=== PATIENT | female | born 1945 | race Caucasian/White ===

== ENCOUNTER 2017-02-10 08:32 | Outpatient (CLI) | payer MEDICARE ==
[~2017-02-10] VITALS: Ht 152.4 cm; Wt 77.1 kg
[~2017-02-10 08:32] MED LIST changes: -CARV6.252 PO
[2017-02-10 08:41] VITALS: BP 131/63
[2017-02-10] MEDS ORDERED: CARV6.252 PO (08:48)
== END 2017-02-10 08:57 | disposition home or self-care (01) ==
LOC: PREOP 08:32
PROVIDERS: ATTEND Surgery
DX: Z01.818 Encounter for other preprocedural examination (principal); Z11.2 Encounter for screening for other bacterial diseases; L98.9 Disorder of the skin and subcutaneous tissue, unspecified
CPT/HCPCS: 87081

== ENCOUNTER → 2017-02-10 | Outpatient (CLI) | payer MEDICARE ==
[~2017-02-10] MED LIST: ALPRAZOLAM 0.25 MG; AMLO10TA PO; AMOXICILLIN 500 MG; BENA20TA2 PO; CARV6.252 PO; CHOL10003 PO; DOCU-143 PO; EST30C VG; FURO20TA4 PO; HYDR-3062 PO; HYDR-3812 PO; HYDR1TAB PO; LEVO112T55 PO; LVT.1T PO; MAGN400T6 PO; MEDR2.5T6 PO; METO-272 PO; MULT-1021 PO; OMEP40CA36 PO; PAROXETINE; PREMARIN VAGINAL CRE; TRIA10.8 NSEACH; TYLENOL ARTHRITIS PO; [UNRECOGNIZED DRUG - CODE]; [UNRECOGNIZED DRUG - CODE] PO; [UNRECOGNIZED DRUG - OTHER]; vitamine D3 PO
--- NOTE | 2017-02-11 08:15 | Diagnostic Imaging Report ---
Bilateral screening mammogram The current study was also evaluated with a Computer Aided Detection (CAD) system. Indication: Screening. No current complaints stated on the questionnaire. COMPARISON: 11/25/15. FINDINGS: The breasts are composed of heterogeneously dense parenchyma which may decrease mammographic sensitivity. Bilateral scattered calcifications are seen. Allowing for technique and positional differences, no suspicious change is seen. IMPRESSION: No significant change. ACR BI-RADS Category 2: Benign findings. Result letter will be mailed to the patient. Note: At least 10% of breast cancer is not imaged by mammography. Dictated by: Dictated on workstation # [id number]
== END ==
LOC: RAD 08:52
PROVIDERS: ATTEND Obstetrics & Gynecology
DX: Z12.31 Encounter for screening mammogram for malignant neoplasm of breast (principal)
CPT/HCPCS: 77067

== ENCOUNTER 2017-02-17 06:00 | Day surgery (SDC) | payer MEDICARE ==
[~2017-02-17] VITALS: Ht 152.4 cm; Wt 77.1 kg
[~2017-02-17 06:00] MED LIST changes: +CARV6.252 PO
[2017-02-17 06:25] VITALS: BP 135/66
[2017-02-17] MEDS ORDERED: FAMOTIDINE 20MG/2ML IV (PEPCID) IV ONE (06:30)
[2017-02-17] MEDS ORDERED: LACTATED RINGERS 1,000 ML IV PRN (06:30)
[2017-02-17] MEDS ORDERED: ceFAZolin 1,000 MG (ANCEF) VIAL ONE (06:30)
[2017-02-17] MEDS ORDERED: NS (IVPB) 50 ML ONE (06:31)
[2017-02-17] MEDS ORDERED: ceFAZolin 1 GM/NS 50 ML IVPB IV ONE ×2 (07:00)
[2017-02-17] MEDS ORDERED: BUPIVACAINE 0.5% 30 ML (SENSORCAINE) VIAL ONE (07:18)
[2017-02-17] MEDS ORDERED: LIDOCAINE 1% INJ 20 ML (XYLOCAINE) VIAL ONE (07:18)
[2017-02-17] MEDS ORDERED: MIDAZOLAM 2 MG/2 ML (VERSED) VIAL ONE (08:12)
[2017-02-17] MEDS ORDERED: proPOfol 200 MG/20 ML (DIPRIVAN) VIAL IV ONE (08:12)
--- NOTE | 2017-02-17 08:17 | Progress Note-Pre Operative ---
Pre-Operative Progress Note H&P Reviewed The H&P was reviewed, patient examined and no changes noted. Date H&P Reviewed: Feb 17, 2017 Time H&P Reviewed: 08:16 Pre-Operative Diagnosis: right neck lesion DAXA MUSTAFA DO Feb 17, 2017 8:17 am
[2017-02-17] MEDS ORDERED: HYDR-3812 PO (08:32)
[2017-02-17] MEDS ORDERED: DOCU-143 PO (08:32)
--- NOTE | 2017-02-17 08:34 | Discharge Inst-Simple/Standard ---
Discharge Inst-Standard Discharge Medications New, Converted or Re-Newed RX: RX on Chart Patient Instructions/Follow Up Plan of Care/Instructions/FU: Follow up in 10 days for suture removal Activity as Tolerated: No Discharge Diet: No Restrictions Other Inst to Patient Follow up Appt: Make appointment for 10 days. Instructions: No lifting greater than 10 pounds. No strenuous activity. May shower in 24 hours, no tub bath or soaking. Use incentive spirometer at home as directed. No Smoking Skin/Wound Care: May remove bandages. You need to leave the white strips over incision on they will fall off on their own. Symptoms to Report: Appetite Changes, Extremity Discoloration, Numbness/Tingling, Swelling Increased , Bleeding Excessive, Eyesight Changes, Pain Increased, Urine Color Change, Constipation(Persistent), Fever over 101 degree F, Pain/Pressure in chest, Urinating Difficulty, Cough Up/Vomit Blood, Heart Beat Irreg/Pounding, Pain/ Pressure in jaw, Vaginal Bleeding Increase, Cramps in feet or legs, Lightheadedness, Pain/Pressure in shoulder, Diarrhea(Persistent), Memory Changes Suddenly, Questions/Concerns, Weight gain consecutive days, Dizziness/ Fainting, Nausea/Vomiting, Shortness of Breath, Weight gain over 2 pounds If questions or concerns contact your physician Or seek help at emergency department. WALDEMAR HDZ APRN Feb 17, 2017 08:34
[2017-02-17] MEDS ORDERED: LACTATED RINGERS 1,000 ML IV ONE (08:43)
--- NOTE | 2017-02-17 08:47 | Progress Note-Post Operative ---
Post-Operative Progess Note Surgeon (s)/Reservoir Engineering Advisor (s) Surgeon DAXA MUSTAFA DO Reservoir Engineering Advisor: 0 Pre-Operative Diagnosis right neck lesion Post-Operative Diagnosis same Post-Op Procedure Note Date of Procedure: Feb 17, 2017 Name of Procedure Performed: excision neck lesion 2x1cm Description of the Procedure: see note Findings of the Procedure see note Anesthesia Type mac c local Estimated blood loss (mL): minimal Specimen(s) collected/removed skin lesion neck DAXA MUSTAFA DO Feb 17, 2017 8:47 am
[2017-02-17] MEDS ORDERED: MEPERIDINE (DEMEROL) INJ 50 MG/ML IVP PRN (09:00)
[2017-02-17] MEDS ORDERED: MEPERIDINE (DEMEROL) INJ 50 MG/ML ONE (09:06)
[2017-02-17 09:25] VITALS: BP 136/66
[2017-02-17 09:55] VITALS: BP 137/78
--- NOTE | 2017-02-17 12:45 | OPERATIVE REPORT ---
PROCEDURE PHYSICIAN: DAXA MUSTAFA DATE OF PROCEDURE: 02/17/2017 PREOPERATIVE DIAGNOSIS: Skin lesion, neck. POSTOPERATIVE DIAGNOSIS: Skin lesion, neck. PROCEDURE: Excision of neck lesion 2 x 1 cm SURGEON: Patria. ANESTHESIA: MAC with local, 5 mL 0.5 Marcaine 1% lidocaine 50:50 ratio. ESTIMATED BLOOD LOSS: Minimal. COMPLICATIONS: None. INDICATIONS: The patient is a 71-year-old female with a skin lesion of the right neck which has increase in size and the patient wishes to have it excised. The patient was anxious about performing it in the office and wished to perform it in the OR. She understands the risks and benefits of the procedure and wished to proceed with the procedure. Consent was signed on the chart. PROCEDURE: The patient was taken operating suite. She was prepped and draped in sterile fashion. A surgical pause was performed. Local anesthetic was infiltrated around the lesion. A number 15 blade scalpel was used to make an elliptical incision around the lesion taking skin and subcutaneous tissues, removing the lesion in its entirety. The skin was then closed using a 4-0 Prolene in a simple interrupted fashion. The area was then washed and dried. Sterile bandage was applied. The patient tolerated the procedure well without complication. She was taken recovery room in stable condition. Job ID: [id number] Dictated Date: 02/17/2017 08:54:00 Security Researcher Date: 02/17/2017 12:39:53 / ritesh RAZA
--- OUTSIDE RECORDS SUMMARY | 2017-03-20 20:28 | XMS REPORT | Continuity of Care Document ---
Author Author [facility] Organization [facility] Address Unknown Phone Unavailable Allergies Active Description Code Type Severity Reaction Onset Reported/Identified Relationship to Patient Clinical Status Yes No Known Drug Allergies [id number] Drug Allergy Unknown N/ A 08/03/2007 Medications Problems Date Dx Coded Attending Type Code Diagnosis Diagnosed By 06/16/2013 JERMAINE BRISENO MD Ot 924.01 CONTUSION OF HIP 06/16/2013 JERMAINE BRISENO MD Ot 959.01 HEAD INJURY, NOS 06/16/2013 JERMAINE BRISENO MD Ot E000.8 OTHER EXTERNAL CAUSE STATUS 06/16/2013 JERMAINE BRISENO MD Ot E849.[address] NEC 06/16/2013 JERMAINE BRISENO MD Ot E880.9 FALL ON STAIR/STEP NEC 09/30/2014 MITCH ORR ELEMENTARY EDUCATION TUTOR Ot 793.89 11/20/2014 Ot V76.12 11/20/2014 Ot 610.0 11/20/2014 MITCH ORR ELEMENTARY EDUCATION TUTOR Ot 793.89 11/20/2014 MITCH ORR ELEMENTARY EDUCATION TUTOR Ot V76.12 11/20/2014 MITCH ORR ELEMENTARY EDUCATION TUTOR Ot 793.80 11/20/2014 MITCH ORRP Ot 793.89 12/19/2014 MITCH ORRP Ot 793.80 12/23/2014 FARAZ MONTOYA DO Ot 793.80 01/02/2015 FARAZ MONTOYA DO Ot 793.80 04/29/2015 DAXA MUSTAFA DO Ot 211.3 BENIGN NEOPLASM LG BOWEL 04/29/2015 DAXA MUSTAFA DO Ot 214.3 LIPOMA INTRA-ABDOMINAL 04/29/2015 DAXA MUSTAFA DO Ot 530.81 ESOPHAGEAL REFLUX 04/29/2015 DAXA MUSTAFA DO Ot 553.3 DIAPHRAGMATIC HERNIA 04/29/2015 DAXA MUSTAFA DO Ot 562.10 DIVERTICULOSIS COLON (W/O MENT OF HEMORR 04/29/2015 RAMSEY DODAXA Ot V76.51 SCREEN MAL NEOP-COLON 12/08/2015 Ot V76.12 12/08/2015 Ot 610.0 12/08/2015 QUICK, MITCH Ann ELEMENTARY EDUCATION TUTOR Ot 793.89 12/08/2015 QUICK, MITCH Ann ELEMENTARY EDUCATION TUTOR Ot V76.12 12/08/2015 QUICK, MITCH W ELEMENTARY EDUCATION TUTOR Ot 793.80 12/08/2015 QUICK, MITCH W ELEMENTARY EDUCATION TUTOR Ot 793.89 12/08/2015 MONTOYA DOADOLFOA C Ot 793.80 12/08/2015 [place] DOTOSHIATT D Ot V72.84 12/08/2015 MONTOYA ADOLFO MAZAA C Ot N60.09 12/08/2015 MONTOYA ADOLFO MAZAA C Ot Z12.31 12/08/2015 MUSTAFA DAXA MAZA D Ot K43.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 12/16/2015 ADOLFO MONTOYA DOA C Ot N60.09 12/16/2015 ADOLFO MONTOYA DOA C Ot Z12.31 12/25/2015 [place] DODAXA D Ot K42.9 12/25/2015 MUSTAFA DODAXA D Ot K43.2 12/25/2015 MUSTAFA DODAXA D Ot Z01.810 12/25/2015 [place] DO, DAXA D Ot Z01.812 01/08/2016 MUSTAFA DO, DAXA D Ot K42.9 01/08/2016 [place] DODAXA D Ot K43.2 01/08/2016 [place] DOTOSHIATT D Ot Z01.810 01/08/2016 [place] DO, DAXA D Ot Z01.812 07/26/2016 WILL VINSON DO Ot G47.33 OBSTRUCTIVE SLEEP APNEA (ADULT) (PEDIATR 08/01/2016 WILL VINSON DO Ot G47.31 PRIMARY CENTRAL SLEEP APNEA 08/03/2016 WILL VINSON DO Ot G47.31 PRIMARY CENTRAL SLEEP APNEA 08/18/2016 WILL VINSON DO Ot G47.31 PRIMARY CENTRAL SLEEP APNEA 08/27/2016 WILL VINSON DO Ot G47.31 PRIMARY CENTRAL SLEEP APNEA 10/03/2016 SHERLYN MCADAMS APRN Ot G47.33 OBSTRUCTIVE SLEEP APNEA (ADULT) ( PEDIATR 10/04/2016 SHERLYN MCADAMS APRN Ot G47.33 OBSTRUCTIVE SLEEP APNEA (ADULT) ( PEDIATR 02/10/2017 Ot V76.12 OTH SCREEN MAMMO-MALIGN NEOPLASM OF CRISSY 02/10/2017 Ot 610.0 SOLITARY CYST OF BREAST 02/10/2017 MITCH ORR Ot 793.89 OTH (ABN) FINDINGS ON RADIOLOGICAL EXAMI 02/10/2017 MITCH ORR Ot V76.12 OTH SCREEN MAMMO-MALIGN NEOPLASM OF CRISSY 02/10/2017 MITCH ORR Ot 793.80 UNSPEC ABNORMAL MAMMOGRAM 02/10/2017 MITCH ORR Ot 793.89 OTH (ABN) FINDINGS ON RADIOLOGICAL EXAMI 02/10/2017 FARAZ MONTOYA DO Ot 793.80 UNSPEC ABNORMAL MAMMOGRAM 02/10/2017 DAXA MUSTAFA DO Ot V72.84 EXAM PRE-OPERATIVE NOS 02/10/2017 FARAZ MONTOYA DO Ot N60.09 SOLITARY CYST OF UNSPECIFIED BREAST 02/10/2017 FARAZ MONTOYA DO Ot Z12.31 ENCNTR SCREEN MAMMOGRAM FOR MALIGNANT NE 02/10/2017 DAXA MUSTAFA DO Ot K42.9 UMBILICAL HERNIA WITHOUT OBSTRUCTION OR 02/10/2017 DAXA MUSTAFA DO Ot K43.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 02/10/2017 DAXA MUSTAAF DO Ot Z01.810 ENCOUNTER FOR PREPROCEDURAL CARDIOVASCUL 02/10/2017 DAXA MUSTAFA DO Ot Z01.812 ENCOUNTER FOR PREPROCEDURAL LABORATORY E 02/10/2017 WILL VINSON DO Ot G47.31 PRIMARY CENTRAL SLEEP APNEA 02/10/2017 Ot V76.12 OTH SCREEN MAMMO-MALIGN NEOPLASM OF CRISSY 02/10/2017 Ot 610.0 SOLITARY CYST OF BREAST 02/10/2017 MITCH ORR Ot 793.89 OTH (ABN) FINDINGS ON RADIOLOGICAL EXAMI 02/10/2017 MITCH ORR Ot V76.12 OTH SCREEN MAMMO-MALIGN NEOPLASM OF CRISSY 02/10/2017 MITCH ORR Ot 793.80 UNSPEC ABNORMAL MAMMOGRAM 02/10/2017 MITCH ORR Ot 793.89 OTH (ABN) FINDINGS ON RADIOLOGICAL EXAMI 02/10/2017 MONTOYAMarissa MAZA FARAZ C Ot 793.80 UNSPEC ABNORMAL MAMMOGRAM 02/10/2017 DAXA MUSTAFA DO Ot V72.84 EXAM PRE-OPERATIVE NOS 02/10/2017 MONTOYA FARAZ Ot N60.09 SOLITARY CYST OF UNSPECIFIED BREAST 02/10/2017 MONTOYAFARAZ Ann DO Ot Z12.31 ENCNTR SCREEN MAMMOGRAM FOR MALIGNANT NE 02/10/2017 MUSTAFA DODAXA Ot K42.9 UMBILICAL HERNIA WITHOUT OBSTRUCTION OR 02/10/2017 MUSTAFA DODAXA Ot K43.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 02/10/2017 DAXA MUSTAFA DO Ot Z01.810 ENCOUNTER FOR PREPROCEDURAL CARDIOVASCUL 02/10/2017 DAXA MUSTAFA DO Ot Z01.812 ENCOUNTER FOR PREPROCEDURAL LABORATORY E 02/10/2017 WILL VINSON DO Ot G47.31 PRIMARY CENTRAL SLEEP APNEA 02/10/2017 Ot V76.12 OTH SCREEN MAMMO-MALIGN NEOPLASM OF CRISSY 02/10/2017 Ot 610.0 SOLITARY CYST OF BREAST 02/10/2017 MITCH ORR Ot 793.89 OTH (ABN) FINDINGS ON RADIOLOGICAL EXAMI 02/10/2017 MITCH ORR Ot V76.12 OTH SCREEN MAMMO-MALIGN NEOPLASM OF CRISSY 02/10/2017 MITCH ORR Ot 793.80 UNSPEC ABNORMAL MAMMOGRAM 02/10/2017 MITCH ORR Ot 793.89 OTH (ABN) FINDINGS ON RADIOLOGICAL EXAMI 02/10/2017 MONTOYAFARAZ Ann DO Ot 793.80 UNSPEC ABNORMAL MAMMOGRAM 02/10/2017 DAXA MUSTAFA DO Ot V72.84 EXAM PRE-OPERATIVE NOS 02/10/2017 MONTOYAFARAZ Ann DO Ot N60.09 SOLITARY CYST OF UNSPECIFIED BREAST 02/10/2017 FARAZ MONTOYA DO Ot Z12.31 ENCNTR SCREEN MAMMOGRAM FOR MALIGNANT NE 02/10/2017 DAXA MUSTAFA DO Ot K42.9 UMBILICAL HERNIA WITHOUT OBSTRUCTION OR 02/10/2017 DAXA MUSTAFA DO Ot K43.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 02/10/2017 DAXA MUSTAFA DO Ot Z01.810 ENCOUNTER FOR PREPROCEDURAL CARDIOVASCUL 02/10/2017 DAXA MUSTAFA DO Ot Z01.812 ENCOUNTER FOR PREPROCEDURAL LABORATORY E 02/10/2017 KAREL MAZA WILL Ernie Ot G47.31 PRIMARY CENTRAL SLEEP APNEA 02/10/2017 DAXA MUSTAFA DO Ot L98.9 DISORDER OF THE SKIN AND SUBCUTANEOUS TI 02/10/2017 DAXA MUSTAFA DO Ot Z01.818 ENCOUNTER FOR OTHER PREPROCEDURAL EXAMIN 02/10/2017 DAXA MUSTAFA DO Ot Z11.2 ENCOUNTER FOR SCREENING FOR OTHER BACTER 02/11/2017 FARAZ MONTOYA DO Ot Z12.31 ENCNTR SCREEN MAMMOGRAM FOR MALIGNANT NE 02/17/2017 Ot V76.12 OTH SCREEN MAMMO-MALIGN NEOPLASM OF CRISSY 02/17/2017 Ot 610.0 SOLITARY CYST OF BREAST 02/17/2017 MITCH ORR ELEMENTARY EDUCATION TUTOR Ot 793.89 OTH (ABN) FINDINGS ON RADIOLOGICAL EXAMI 02/17/2017 QUICKMITCH Ot V76.12 OTH SCREEN MAMMO-MALIGN NEOPLASM OF CRISSY 02/17/2017 MITCH ORRP Ot 793.80 UNSPEC ABNORMAL MAMMOGRAM 02/17/2017 MITCH ORRP Ot 793.89 OTH (ABN) FINDINGS ON RADIOLOGICAL EXAMI 02/17/2017 FARAZ MONTOYA DO Ot 793.80 UNSPEC ABNORMAL MAMMOGRAM 02/17/2017 DAXA MUSTAFA DO Ot V72.84 EXAM PRE-OPERATIVE NOS 02/17/2017 FARAZ MONTOYA DO Ot N60.09 SOLITARY CYST OF UNSPECIFIED BREAST 02/17/2017 FARAZ MONTOAY DO Ot Z12.31 ENCNTR SCREEN MAMMOGRAM FOR MALIGNANT NE 02/17/2017 DAXA MUSTAFA DO Ot K42.9 UMBILICAL HERNIA WITHOUT OBSTRUCTION OR 02/17/2017 DAXA MUSTAFA DO Ot K43.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 02/17/2017 DAXA MUSTAFA DO Ot Z01.810 ENCOUNTER FOR PREPROCEDURAL CARDIOVASCUL 02/17/2017 DAXA MUSTAFA DO Ot Z01.812 ENCOUNTER FOR PREPROCEDURAL LABORATORY E 02/17/2017 WILL VINSON DO Ot G47.31 PRIMARY CENTRAL SLEEP APNEA 02/17/2017 FARAZ MONTOYA DO Ot Z12.31 ENCNTR SCREEN MAMMOGRAM FOR MALIGNANT NE 02/17/2017 DAXA MUSTAFA DO Ot D18.01 HEMANGIOMA OF SKIN AND SUBCUTANEOUS TISS 02/23/2017 DAXA MUSTAFA DO Ot D18.01 HEMANGIOMA OF SKIN AND SUBCUTANEOUS TISS 02/24/2017 DAXA MUSTAFA DO Ot D18.01 HEMANGIOMA OF SKIN AND SUBCUTANEOUS TISS 03/08/2017 FARAZ MONTOYA DO Ot Z12.31 ENCNTR SCREEN MAMMOGRAM FOR MALIGNANT NE Procedures Results Test Result Range Methicillin resistant Staphylococcus aureus (MRSA) screening culture - 08:52 Methicillin resistant Staphylococcus aureus (MRSA) screening culture NEG NRG Encounters ACCT No. Visit Date/Time Discharge Status Pt. Type Provider Facility Loc./Unit Complaint [id number] 02/17/2017 06:00:00 2016 10:05:00 DIS Outpatient DAXA MUSTAFA DO [facility] RIGHT NECK LESION [id number] 02/10/2017 08:32:00 2016 08:57:00 DIS Outpatient DAXA MUSTAFA DO [facility] PREOP RIGHT NECK LESION [id number] 10/02/2016 21:02:00 2015 06:45:00 DIS Outpatient SHERLYN MCADAMS APRN [facility] SLEEP KIM,SLEEP DISTURBANCE [id number] 12/08/2015 07:54:00 2015 16:35:00 DIS Outpatient DAXA MUSTAFA DO [facility] INCISIONAL HERNIA [id number] 04/29/2015 12:30:00 2014 16:45:00 DIS Outpatient DAXA MUSTAFA DO [facility] HISTORY OF POLYPS [id number] 04/23/2015 06:33:00 2014 23:59:59 CLS Outpatient DAXA MUSTAFA DO [facility] PREOP HISTORY OF POLYPS [id number] 11/20/2014 10:19:00 2014 23:59:59 CLS Outpatient FARAZ MONTOYA DO [facility] RAD SCREENING [id number] 06/05/2014 08:12:00 2013 23:59:59 CLS Outpatient MITCH ORR [facility] RAD 6 MONTH FOLLOW UP [id number] 12/07/2013 08:58:00 2013 23:59:59 CLS Outpatient MITCH ORR [facility] RAD ABN MAMMO [id number] 11/19/2013 09:23:00 2013 23:59:59 CLS Outpatient MITCH ORR [facility] RAD SCREENING [id number] 06/16/2013 17:05:00 2012 19:42:00 DIS Emergency JERMAINE BRISENO MD [facility] ER FALL [id number] 02/10/2017 08:52:00 ACT Outpatient FARAZ MONTOYA DO [facility] RAD SCREENING [id number] 07/26/2016 19:50:00 ACT Outpatient WILL VINSON DO [facility] SLEEP OBSTRUCTIVE SLEEP APNEA [id number] 12/05/2015 12:02:00 ACT Outpatient DAXA MUSTAFA DO [facility] PREOP UMB HERNIA/INCISIONAL HERNIA [id number] 11/25/2015 10:33:00 ACT Outpatient FARAZ MONTOYA DO [facility] RAD ROUTINE MAMMOGRAM SCREENING [id number] 12/06/2012 08:16:00 Document Registration [id number] 11/15/2012 09:28:00 Document Registration
--- OUTSIDE RECORDS SUMMARY | 2017-03-20 20:28 | XMS REPORT | Clinical Summary ---
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 Active Gaye Neves Postsurgical hypothyroidism OSTEOARTHRITIS 715.90 Active Gaye Neves Osteoarthrosis, unspecified whether generalized or localized, involving unspecified site SYNCOPE 780.2 Resolved Gaye Neves Syncope and collapse VERTIGO 780.4 Resolved Gaye Neves Dizziness and giddiness NAUSEA 787.02 Resolved Gaye Neves Nausea alone HYPOKALEMIA 276.8 Resolved Gaye Neves Hypopotassemia VACCINE AGAINST STREPTOCOCCUS PNEUMONIAE V03.82 Resolved Gaye Neves Need for prophylactic vaccination against Streptococcus pneumoniae [pneumococcus] 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 Gaye Neves Cholesteatoma of external ear DERMATOPHYTOSIS 110.9 Resolved Gaye Neves Dermatophytosis of unspecified site SCIATICA/HERNIATED DISC 722.10 Resolved Gaye Neves Displacement of lumbar intervertebral disc without myelopathy TREMOR NEC 333.1 Active Gaye Neves Essential and other specified forms of tremor ALLERGIC RHINITIS, SEASONAL 477.0 Active Gaye Neves Allergic rhinitis due to pollen INFLUENZA W/RESPIRATORY MANIFESTATION NEC 487.1 Resolved Gaye Neves Influenza with other respiratory manifestations FEVER PRESENTING CONDITIONS CLASSIFIED ELSEWHERE 780.61 Resolved Gaye Neves Fever presenting with conditions classified elsewhere EDEMA LEG 782.3 Active Gaye Neves Edema CARPAL TUNNEL SYNDROME, BILATERAL 354.0 Active Gaye Neves Carpal tunnel syndrome 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.3 Active Gaye Neves Congenital stenosis of aortic valve Medication List Medication Instructions Start Date Stop Date Generic Name NDC Status Provider Patient Instruction LASIX 20 MG TAB 1 PO every other day for fluid retention FUROSEMIDE 73756487200 Active Gaye Neves TAMIFLU 75 MG CAPS 1 PO BID OSELTAMIVIR PHOSPHATE 43592602294 No Longer Active Gaye Neves HYDROCODONE-ACETAMINOPHEN 5-325 MG TABS 1-2 PO Q4-6 hrs prn pain HYDROCODONE-ACETAMINOPHEN 52350290253 No Longer Active Gaye Neves MEDROXYPROGESTERONE ACETATE 2.5 MG TABS 1 po daily MEDROXYPROGESTERONE ACETATE 79795355654 No Longer Active Gaye Neves PRILOSEC 40 MG CPDR 1 po daily OMEPRAZOLE 82308437217 Active Gaye Neves ZINC-MAGNESIUM 1 PO daily ZINC-MAGNESIUM No Longer Active Gaye Neves VITAMIN E 1000 UNIT CAPS 1 PO daily VITAMIN E 62670914201 No Longer Active Gaye Rosenda Neves LASIX 20 MG TAB 1 PO every third day FUROSEMIDE 19733568314 No Longer Active Gaye Rosenda Neves VITAMIN B-12 1000 MCG TABS 1 PO daily CYANOCOBALAMIN 67072492987 No Longer Active Gaye Rosenda Neves MENTAX 1 % CREA Apply cream to affected area BID BUTENAFINE HCL 07359906385 No Longer Active Gaye Rosenda Neves NAPROXEN 500 MG TABS 1 PO daily prn NAPROXEN 37459350867 No Longer Active Gaye Rosenda Neves VITAMIN D 1000 UNIT TABS 2 PO daily CHOLECALCIFEROL 64072548707 Active Gaye Rosenda Neves LOTRISONE 0.05-1 % CREAM apply to affected area bid CLOTRIMAZOLE-BETAMETHASONE 62410076576 No Longer Active Gaye Rosenda Neves SINGULAIR 10 MG TABS 1 PO QHS MONTELUKAST SODIUM 52322001000 No Longer Active Gaye Rosenda Neves SYNTHROID 0.1 MG TAB 1 PO daily LEVOTHYROXINE SODIUM 28374369834 Active Gaye Rosenda Neves OMEPRAZOLE 40 MG CPDR 1 po daily OMEPRAZOLE 66472090621 No Longer Active Gaye Rosenda Neves ZOSTAVAX 09962 UNT/0.65ML SOLR 1 injection once to prevent shingles ZOSTER VACCINE LIVE 06626196379 No Longer Active Gaye Rosenda Neves EVONNE 180 MG TABS 1 PO BID for 7 days FEXOFENADINE HCL 38801404902 No Longer Active Gaye Rosenda Neves BLACK COHOSH CAPS 1 PO daily BLACK COHOSH CAPS 90799807537 No Longer Active Gaye Rosenda Neves MULTIVITAMINS CAPS 1 PO daily MULTIPLE VITAMIN 83576796890 Active Gaye Lopezner NORVASC 10 MG TAB 1 PO QD AMLODIPINE BESYLATE 62112419560 Active Gaye Neves LOTENSIN 20 MG TABS 1 PO daily BENAZEPRIL HCL 23570619489 Active Gaye Lopezner CALTRATE 600 PLUS-VIT D 600-200 MG-IU TABS 1 PO BID CALCIUM-VITAMIN D Active Gaye Herzog Neves NASACORT AQ 55 MCG/ACT AERS 2 sprays in each nostril daily TRIAMCINOLONE ACETONIDE(NASAL) 44399314767 Active Gaye Lopezner PREMARIN 0.625 MG/GM CREA insert 1/2 to 1 applicator full into vaginal area 2 to 3 times a week ESTROGENS, CONJUGATED 29623020120 Active Gaye Herzog Neves METOPROLOL TARTRATE 50 MG TAB 1 po BID METOPROLOL TARTRATE 40703573487 Active Gaye Herzog Edinson Immunizations Vaccine Administration Date Value Standard Description Influenza vaccine given Done influenza virus vaccine, unspecified formulation pneumococcal immunization administered Done pneumococcal polysaccharide vaccine, 23 valent dT (Diphtheria and Tetanus) booster given Given Td(adult) unspecified formulation Vital Signs Date Name Value Unit Range Description blood pressure, diastolic - 8462-4 64 mm[Hg] BP brock blood pressure, systolic - 8480-6 118 mm[Hg] BP sys pulse rate E&M - 8867-4 76 /min Heart rate respiratory rate E&M - 9279-1 14 /min Resp rate weight E&M - 3141-9 184 [lb_av] Weight Measured blood pressure, diastolic - 8462-4 82 mm[Hg] BP brock blood pressure, systolic - 8480-6 110 mm[Hg] BP sys pulse rate E&M - 8867-4 76 /min Heart rate respiratory rate E&M - 9279-1 14 /min Resp rate temperature E&M 100.0 [degF] Body temperature weight E&Ernie - 3141-9 175 [lb_av] Weight Measured blood pressure, diastolic - 8462-4 65 mm[Hg] BP brock blood pressure, systolic - 8480-6 120 mm[Hg] BP sys pulse rate E&Ernie - 8867-4 60 /min Heart rate respiratory rate E&Ernie - 9279-1 14 /min Resp rate weight Sharmila&M - 3141-9 165 [lb_av] Weight Measured Diagnostic Results Date Name Value Unit Range Description Clinical Lists Update: CBC,CMP,FLP,TSH,FREE T4 - Chemistry albumin, serum 3.9 g/dL LDL cholesterol, serum 103 mg/dL alkaline phosphatase, serum 72 U/L glucose, plasma fasting 100 mg/dL urea nitrogen, blood 10 mg/dL cholesterol/HDL ratio, serum, percent 3.3 calcium, serum 9.0 mg/dL anion gap, serum 11 chloride, serum 105 mmol/L sodium, serum 139 mmol/L cholesterol, serum 177 mg/dL triglyceride, serum, fasting 107 mg/dL carbon dioxide, venous blood 27.0 mmol/L bilirubin, serum, total 0.5 mg/dL creatinine, serum 0.6 mg/dL alanine aminotransferase (SGPT), serum 28 U/L thyroxine, serum, free 0.97 ng/dL aspartate aminotransferase (SGOT), serum 28 U/L HDL cholesterol, serum 53.0 mg/dL protein, total, serum 6.6 g/dL thyroid stimulating hormone, serum 2.16 u[iU]/mL potassium, serum 3.8 mmol/L Estimated Glomerular Filtration Rate (calc) 98 mL/min/1.73m2 Clinical Lists Update: CBC,CMP,FLP,TSH,FREE T4 - Hematology hemoglobin, blood 14.1 g/dL hematocrit, blood 45 % platelet count 246 10*3/mm3 erythrocyte (RBC) count 4.53 10*6/mm3 leukocyte count, blood 7.5 10*3/mm3 mean corpuscular volume, RBC 98 fL red blood cell distribution width 13.5 % Clinical Lists Update: CMP,FLP,TSH,Free T4,HgA1c - Chemistry aspartate aminotransferase (SGOT), serum 35 U/L LDL cholesterol, serum 124 mg/dL alanine aminotransferase (SGPT), serum 32 U/L carbon dioxide, venous blood 27.0 mmol/L bilirubin, serum, total 0.7 mg/dL cholesterol, serum 209 mg/dL triglyceride, serum, fasting 148 mg/dL chloride, serum 105 mmol/L sodium, serum 140 mmol/L calcium, serum 9.4 mg/dL anion gap, serum 12 urea nitrogen, blood 12 mg/dL cholesterol/HDL ratio, serum, percent 3.8 alkaline phosphatase, serum 77 U/L glucose, plasma fasting 101 mg/dL albumin, serum 4.1 g/dL Estimated Glomerular Filtration Rate (calc) 100 mL/min/1.73m2 thyroxine, serum, free 0.99 ng/dL protein, total, serum 6.6 g/dL HDL cholesterol, serum 55.0 mg/dL hemoglobin A1C, blood, as % of total hemoglobin 5.8 % potassium, serum 3.9 mmol/L thyroid stimulating hormone, serum 0.83 u[iU]/mL creatinine, serum 0.6 mg/dL Encounters Code Encounter Date Provider Facility CPT-36559 Ofc Vst, Est Level IV 12:44:31 CDT Gayearmando Trejo Edinson, DO, FACP CPT-70679 Ofc Vst, Est Level IV 19:30:25 DIRECTOR OF MUSIC THERAPY Gaye Trejo Neves, DO, FACP CPT-39442 Ofc Vst, Est Level III 18:23:51 CDT Gaye Rosenda Trejo Neves, DO, FACP CPT-97609 Ofc Vst, Est Level II 15:28:48 CDT Gaye Rosenda Trejo Edinson, DO, FACP CPT-86529 Ofc Vst, Est Level III 13:14:09 CDT Gayearmando Trejo Edinson, DO, FACP CPT-28649 Ofc Vst, Est Level III 12:52:14 CDT Gaye Rosenda Trjeo Edinson, DO, FACP CPT-77063 Ofc Vst, Est Level III 14:39:04 CDT Gayearmando Trejo Edinson, DO, FACP CPT-43181 Ofc Vst, Est Level IV 10:56:17 CDT Gayearmando Trejo Edinson, DO, FACP CPT-72161 Ofc Vst, Est Level III 16:05:16 CDT Gayearmando Trejo Edinson, DO, FACP CPT-81180 Ofc Vst, Est Level IV 16:28:26 CDT Gaye Rosenda Trejo Edinson, DO, FACP CPT-49478 Ofc Vst, Est Level IV 16:31:13 DIRECTOR OF MUSIC THERAPY Gaye Trejo Edinson, DO, FACP CPT-31711 Ofc Vst, Est Level IV 14:35:03 CDT Gayearmando Trejo Edinson, DO, FACP CPT-87635 Ofc Vst, Est Level IV 15:46:19 CDT Gaye Neves, DO, FACP CPT-47410 Ofc Vst, Est Level IV 16:08:32 CDT Gaye Neves, DO, FACP CPT-77034 Ofc Vst, Est Level IV 10:35:35 CDT Gaye Neves, DO, FACP CPT-02235 Ofc Vst, Est Level IV 15:43:39 DIRECTOR OF MUSIC THERAPY Gaye Neves, DO, FACP CPT-94772 Ofc Vst, New Level IV 14:59:04 DIRECTOR OF MUSIC THERAPY Gaye Neves, DO, FACP Procedures Code Procedure Name Date Entry Date Standard Description CPT-G0439 Medicare Annual Wellness Visit 14:44:36 CDT CPT-G8443 E-Prescribing Medication Sent 18:23:51 CDT CPT-G8443 E-Prescribing Medication Sent 10:56:28 CDT CPT-G0439 Medicare Annual Wellness Visit 10:56:28 CDT CPT-G8445 E-Prescribing Not sent due to no medication given 15:28: 48 CDT CPT-G8446 E-Prescribing not done due to controlled substance 13:14 :09 CDT CPT-G8443 E-Prescribing Medication Sent 12:52:14 CDT CPT-G8443 E-Prescribing Medication Sent 11:27:10 CDT CPT-G0438 Medicare Annual Wellness Visit Initial 11:27:10 CDT CPT-11173 Injection, Pneumovax 16:05:16 CDT
== END 2017-02-17 10:05 | disposition home or self-care (01) ==
LOC: SDC 06:00
PROVIDERS: ATTEND Surgery
DX: D18.01 Hemangioma of skin and subcutaneous tissue (principal)
CPT/HCPCS: 88305

== ENCOUNTER → 2018-02-14 | Outpatient (CLI) | payer MEDICARE ==
[~2018-02-14] MED LIST changes: +ACHD5005 PO; -HYDR-3812 PO; +METO-370 PO
--- NOTE | 2018-02-14 13:48 | Diagnostic Imaging Report ---
INDICATION: Screening. COMPARISON: 02/10/2017 back through 11/10/2011. TECHNIQUE: Screening digital mammography was performed bilaterally with a Computer Aided Detection (CAD) system. FINDINGS: There is a nodular appearance of the fibroglandular tissue bilaterally which is unchanged. There are scattered benign type calcifications. There is no new dominant mass, spiculated lesion, or suspicious calcification identified. The skin, nipples, and axillae are unremarkable. IMPRESSION: Benign findings. ACR BI-RADS Category 2: Benign findings. Result letter will be mailed to the patient. Note: At least 10% of breast cancer is not imaged by mammography. Dictated on workstation # [id number]
== END ==
LOC: RAD 09:14
PROVIDERS: ATTEND Obstetrics & Gynecology
DX: Z12.31 Encounter for screening mammogram for malignant neoplasm of breast (principal)
CPT/HCPCS: 77067

== ENCOUNTER → 2018-11-02 | Outpatient (CLI) | payer MEDICARE ==
--- NOTE | 2018-11-02 11:49 | Diagnostic Imaging Report ---
PROCEDURE: US right lower extremity venous. TECHNIQUE: Multiple real-time grayscale images were obtained over the right lower extremity in various projections. Additional spectral analysis and color Doppler duplex images were also obtained. INDICATION: Pain and swelling to the right lower extremity. FINDINGS: There is no evidence of a right lower extremity DVT. Right lower extremity deep venous system shows normal compressibility with normal response to augmentation and Valsalva. No fluid collection or mass is seen. IMPRESSION: No evidence of right lower extremity DVT. Dictated by: Dictated on workstation # [id number]
== END ==
LOC: RAD 10:54
PROVIDERS: ATTEND Podiatrist Foot & Ankle Surgery
DX: R60.0 Localized edema (principal)

== ENCOUNTER → 2019-02-26 | Outpatient (CLI) | payer MEDICARE ==
--- NOTE | 2019-02-26 11:36 | Diagnostic Imaging Report ---
INDICATION: Routine screening. COMPARISON: 02/14/2018 and 02/10/2017. TECHNIQUE: 2D and 3D bilateral screening mammography was performed with CAD. FINDINGS: Both breasts remain heterogeneously dense, limiting the sensitivity of mammography. Benign calcifications are scattered throughout both breasts. The fibronodular parenchymal pattern appears to be fairly stable. No dominant mass or malignant appearing microcalcifications are seen. The axillae are unremarkable. IMPRESSION: No mammographic features suspicious for malignancy are identified. ACR BI-RADS Category 2: Benign findings. Result letter will be mailed to the patient. Note: At least 10% of breast cancer is not imaged by mammography. Dictated by: Dictated on workstation # [id number]
== END ==
LOC: RAD 09:02
PROVIDERS: ATTEND Obstetrics & Gynecology
DX: Z12.31 Encounter for screening mammogram for malignant neoplasm of breast (principal)
CPT/HCPCS: 77067

== ENCOUNTER → 2019-09-20 | Outpatient (CLI) | payer MEDICARE ==
--- NOTE | 2019-09-20 16:29 | Diagnostic Imaging Report ---
PROCEDURE: US Thyroid. TECHNIQUE: Multiple real-time grayscale images were obtained of the thyroid in various projections. INDICATION: History of total thyroidectomy with a lumpy sensation when swallowing. FINDINGS: No residual thyroidal parenchyma is identified. Patient complaint correlates with a hypoechoic to anechoic nonvascularized ovoid structure with a diameter of 6 mm in the right supraclavicular region. IMPRESSION: A small cystic-appearing nodule without vascularized or soft tissue component in the right supraclavicular region corresponds to the patient's complaint. No findings of residual or recurrent thyroidal parenchymal or neoplasm within the thyroid bed. Dictated by: Dictated on workstation # [id number]
== END ==
LOC: RAD 13:39
PROVIDERS: ATTEND Internal Medicine
DX: E04.1 Nontoxic single thyroid nodule (principal); Z90.89 Acquired absence of other organs
CPT/HCPCS: 76536

== ENCOUNTER → 2019-10-23 | Outpatient (CLI) | payer MEDICARE ==
--- NOTE | 2019-10-23 14:25 | Diagnostic Imaging Report ---
INDICATION: Right nipple discharge. COMPARISON: Prior mammogram from 02/26/2019. TECHNIQUE: Multiple Real-time grayscale images were obtained over both breasts in various projections. FINDINGS: In the left breast, there is some mild ductal ectasia. There is a benign-appearing calcification at the 12 o'clock position 1 cm from the nipple. There is no discrete solid or cystic mass. There is marked ductal dilatation in the subareolar region of the right breast. There is a small cluster of cysts in the 10 o'clock position of the right breast 8 cm from the nipple measuring 1.7 x 0.6 x 1.3 cm. No other discrete solid or cystic mass is appreciated. IMPRESSION: Bilateral ductal ectasia, right greater than left. Clustered benign-appearing cysts in the right breast. ACR BI-RADS Category 2: Benign findings. Dictated by: Dictated on workstation # [id number]
== END ==
LOC: RAD 13:11
PROVIDERS: ATTEND Obstetrics & Gynecology
DX: N60.01 Solitary cyst of right breast (principal); N60.42 Mammary duct ectasia of left breast; N60.41 Mammary duct ectasia of right breast; N64.52 Nipple discharge

== ENCOUNTER → 2019-11-01 | Outpatient (CLI) | payer MEDICARE ==
[~2019-11-01] MED LIST changes: +BARIUM for suspension 96% w/w (Vanilla Silq Medium Density) PO ONE; +BARIUM for suspension 98% w/w (Vanilla Silq High Density) PO ONE
--- NOTE | 2019-11-01 09:53 | Diagnostic Imaging Report ---
INDICATION: Dysphagia. DETAILS OF PROCEDURE: The patient ingested effervescent crystals as well as thin and thick barium and imaging of the esophagus was performed. Total of 1 minute and 31 seconds of fluoroscopic time was utilized. FINDINGS: Preliminary radiographs of the chest is unremarkable. The esophagus has a smooth contour. No mass or stricture is identified. No gastroesophageal reflux or hiatal hernia was demonstrated. IMPRESSION: Unremarkable barium esophagram. Dictated by: Dictated on workstation # [id number]
== END ==
LOC: RAD 08:50
PROVIDERS: ATTEND Otolaryngology Otolaryngology/Facial Plastic Surgery
DX: R13.10 Dysphagia, unspecified (principal)
CPT/HCPCS: 74220

== ENCOUNTER → 2020-04-04 | Outpatient (CLI) | payer MEDICARE ==
[~2020-04-04] MED LIST changes: -BARIUM for suspension 96% w/w (Vanilla Silq Medium Density) PO ONE; -BARIUM for suspension 98% w/w (Vanilla Silq High Density) PO ONE; -METO-370 PO; +METO50TA7 PO
--- NOTE | 2020-04-04 10:44 | Diagnostic Imaging Report ---
INDICATION: Routine screening. COMPARISON is made with prior mammograms from 02/26/2019 and 02/14/2018. 2-D and 3-D bilateral screening mammography was performed with CAD. Both breasts remain heterogeneously dense, limiting the sensitivity of mammography. There are numerous circumscribed nodules throughout both breasts which demonstrate some waxing and waning over time consistent with cysts. There are benign calcifications throughout both breasts. No dominant mass or malignant appearing microcalcifications are seen. Axillae are unremarkable. IMPRESSION: BI-RADS Category 2 No mammographic features suspicious for malignancy are identified. ACR BI-RADS Category 2: Benign findings. Result letter will be mailed to the patient. Note: At least 10% of breast cancer is not imaged by mammography. Dictated by: Dictated on workstation # [id number]
== END ==
LOC: RAD 08:07
PROVIDERS: ATTEND Obstetrics & Gynecology
DX: Z12.31 Encounter for screening mammogram for malignant neoplasm of breast (principal)
CPT/HCPCS: 77063; 77067

== ENCOUNTER → 2020-07-11 | Outpatient (CLI) | payer MEDICARE ==
--- NOTE | 2020-07-11 16:17 | Diagnostic Imaging Report ---
INDICATION: Palpable lump in right breast. COMPARISON: Correlation is made with prior mammograms from 04/04/2020 and 02/26/2019. EXAMINATION: Unilateral right 2D and 3D diagnostic mammography was performed with CAD. FINDINGS: Right breast is heterogeneously dense, limiting the sensitivity of mammography. Fibronodular parenchymal pattern appears to be fairly stable. No underlying abnormality at the area of palpable abnormality in the retroareolar and slightly outer right breast is identified. There are scattered benign calcifications. Right axilla is unremarkable. IMPRESSION: No mammographic features suspicious for malignancy are identified. Even so, directed sonographic interrogation of the area of palpable abnormality in the right breast is recommended and will be performed today. Dictated on workstation # [id number]
--- NOTE | 2020-07-11 16:30 | Diagnostic Imaging Report ---
INDICATION: Palpable lump in the right breast 11:00 retroareolar region. COMPARISON: Correlation is made with diagnostic mammogram from earlier the same day. EXAMINATION: Sonographic interrogation of the area of palpable abnormality in the right breast 11:00 retroareolar region was performed. FINDINGS: There is calcification at this location. There is a slightly irregular region of hypoechogenicity just deep to the calcification, measuring 6 mm x 5 mm x 3 mm. This is at the site of palpable abnormality. Exact etiology is indeterminate. Patient does have some ductal dilatation near this area. No other suspicious abnormality is detected. IMPRESSION: Heterogeneous hypo-echogenicity retroareolar right breast at the area of palpable abnormality, 11:00 location. There is a questionable 6 mm nodule at this location indeterminate. Further evaluation with breast MRI would be recommended for better characterization. No other significant abnormality is detected. ACR BI-RADS Category 0: Incomplete. (Needs additional imaging evaluation). Result letter will be mailed to the patient. Note: At least 10% of breast cancer is not imaged by mammography. Dictated on workstation # [id number]
== END ==
LOC: RAD 13:15
PROVIDERS: ATTEND Nurse Practitioner Women's Health
DX: N63.11 Unspecified lump in the right breast, upper outer quadrant (principal); N64.52 Nipple discharge
CPT/HCPCS: 76642; 77065; G0279

== ENCOUNTER → 2020-08-01 | Outpatient (CLI) | payer MEDICARE ==
[2020-08-01 09:46] LABS: BUN/CREATININE RATIO 19; GFR ESTIMATED > 60
== END ==
LOC: LAB 09:00
PROVIDERS: ATTEND Nurse Practitioner Women's Health
DX: N63.10 Unspecified lump in the right breast, unspecified quadrant (principal)
CPT/HCPCS: 36415; 82565; 84520

== ENCOUNTER → 2020-08-14 | Outpatient (CLI) | payer MEDICARE ==
[2020-08-01 09:46] LABS: BUN/CREATININE RATIO 19; GFR ESTIMATED > 60
[~2020-08-14] MED LIST changes: +GADOBUTROL 7.5 MMOL/7.5 ML (GADAVIST) VIAL IV ONE
--- NOTE | 2020-08-14 13:08 | Diagnostic Imaging Report ---
Reason for examination: Breast lumps and right nipple discharge. Previous mammogram and ultrasound studies from 07/11/2020 were reviewed. TECHNIQUE: Utilizing 1.5 Marium Siemens magnet, patient was placed in a prone position with a 16 channel Sentinelle dedicated breast coil utilized. Axial STIR and fat sat T2 precontrasted images and axial T1 with and without fat-sat images were obtained. Postcontrast high-resolution dynamic images were also obtained. Pre and post contrasted images are then evaluated with [facility] for evaluation of possible angiogenesis. 7 mL of Gadavist was injected. The breast tissue is heterogeneously dense. There is mild to moderate background parenchymal enhancement. RIGHT BREAST: There is a 6 mm enhancing mass within the right nipple near the nipple duct orifice at approximately the 12 to 1 o'clock position. This does have the appearance of a suspicious intraductal mass. 2nd look ultrasound is recommended but ultimately, this lesion may only be accessible surgically. No definite MRI correlate for the previous suspicious irregular mass at the 11:00 location. Ultrasound-guided biopsy of that previously described mass at the 11 o'clock position is recommended as this is a suspicious ultrasound finding and is not related to the enhancing MRI finding at the nipple duct orifice of the right nipple. LEFT BREAST: No suspicious mass or non-mass enhancement in the left breast. JOANN BASINS: No suspicious adenopathy in the bilateral regional joann basins. IMPRESSION: 1. There is a 6 mm enhancing mass within the right nipple at the 12 to 1 o'clock position which is a suspicious finding and may well account for the patient's reported nipple discharge. A 2nd look ultrasound with standoff technique could be performed to see if this mass is visible but, ultimately, this mass may only be accessible surgically. Therefore, breast surgical evaluation is recommended. 2. There is no definite MRI finding to correlate with the previous suspicious right ultrasound finding at the 11:00 retroareolar position. Ultrasound-guided biopsy of that previous ultrasound finding is recommended. 3. No suspicious findings in the left breast. No suspicious adenopathy. ACR BI-RADS Category 4: Suspicious abnormality. RECOMMENDATIONS: 1. Recommend a 2nd look ultrasound of the right nipple as well as breast surgical consultation for the nipple discharge and mass within the right nipple. 2. Ultrasound-guided biopsy of the irregular mass described at the 11:00 retroareolar position on prior ultrasound. Result letter will be mailed to the patient. Dictated by: Dictated on workstation # [id number]
== END ==
LOC: RAD 08-01 08:45
PROVIDERS: ATTEND Nurse Practitioner Women's Health
DX: N63.10 Unspecified lump in the right breast, unspecified quadrant (principal)
CPT/HCPCS: 82565; 84520; C8908; 36415; 77049

== ENCOUNTER → 2020-09-08 | Outpatient (CLI) | payer MEDICARE ==
[~2020-09-08] MED LIST changes: -GADOBUTROL 7.5 MMOL/7.5 ML (GADAVIST) VIAL IV ONE; +LIDOCAINE 1% INJ 20 ML 20 ML VIAL INJ ONE
--- NOTE | 2020-09-08 14:39 | Diagnostic Imaging Report ---
INDICATION: Right breast nodule. Patient presents for ultrasound-guided biopsy. COMPARISON: Correlation is made with the prior right breast ultrasound from 07/11/2020 as well as an MRI breast from 08/14/2020. DETAILS OF THE PROCEDURE: The patient was brought to the ultrasound suite and placed on the table in the supine position. Ultrasound imaging of the right breast was performed to evaluate for an appropriate entry site. The lateral right breast was then prepped and draped in the usual sterile fashion. A small amount of 1% lidocaine was utilized for local anesthesia. A 13-gauge handheld mammotome vacuum-assisted device was advanced and placed with its biopsy chamber along the deep margin of the hypoechoic nodule with associated calcification at the 11 o'clock location of the right breast. A total of four core biopsies was obtained. The device was removed. A marker clip was then deployed. Hemostasis was obtained using manual compression. The patient tolerated the procedure well and was sent for a post procedure mammogram in satisfactory condition. IMPRESSION: Successful ultrasound guided biopsy of the hypoechoic nodule and calcification at the 11 o'clock location of the right breast utilizing a handheld vacuum assisted mammotome device. Pathology results are currently pending. Dictated by: Dictated on workstation # [id number]
--- NOTE | 2020-09-08 14:43 | Diagnostic Imaging Report ---
INDICATION: Abnormal recent MRI of the right breast. This study is performed for a second look ultrasound. COMPARISON: Correlation is made with the breast MRI from 08/14/2020. FINDINGS: A second look ultrasound was performed with particular attention to the 12 to 1 o'clock retroareolar right breast. An enhancing nodule in this area was noted on MRI. There is some ductal dilatation noted at this location but no discrete mass is identified to account for the MR abnormality. The previously noted nodule at the 11 o'clock location is still present and will be biopsied today. IMPRESSION: No sonographic abnormality is identified at the 12 to 1 o'clock retroareolar location to account for the breast MRI abnormality. The patient is scheduled to undergo ultrasound-guided core biopsy of the nodule at the 11 o'clock location retroareolar region. Dictated by: Dictated on workstation # [id number]
--- NOTE | 2020-09-09 09:57 | Diagnostic Imaging Report ---
INDICATION: Right breast nodule. Patient status post ultrasound-guided biopsy. Unilateral right 2D cc and ML mammography was performed elva-pdjsaoesiv-efwrjg biopsy. A marker clip is located in the retroareolar location. IMPRESSION: Status post ultrasound-guided retroareolar biopsy with marker clip located in the retroareolar region. Dictated by: Dictated on workstation # [id number]
== END ==
LOC: RAD 12:29
PROVIDERS: ATTEND Surgery
DX: N63.11 Unspecified lump in the right breast, upper outer quadrant (principal); R92.1 Mammographic calcification found on diagnostic imaging of breast
CPT/HCPCS: 19083; 76642; 77065; G0279

== ENCOUNTER 2020-09-22 05:45 | Outpatient (RCR) | payer MEDICARE ==
[~2020-09-22] VITALS: Ht 152 cm; Wt 72.7 kg
[~2020-09-22 05:45] MED LIST changes: +ACET-2650 PO; +CHOL500050 PO; +CLC600T PO; +CYCL1DRO OP; +DOXY100C42 PO; +FAMO20TA3 PO; +FLUT15.845 NS; +LEVO100T7 PO; -LIDOCAINE 1% INJ 20 ML 20 ML VIAL INJ ONE; +MULT-1136 PO; +VALS40TA9 PO; +VALS80TA31 PO
== END 2020-09-22 09:45 | disposition home or self-care (01) ==
LOC: PREOP 05:45
PROVIDERS: ATTEND Surgery
DX: Z01.812 Encounter for preprocedural laboratory examination (principal); D24.1 Benign neoplasm of right breast; Z20.828 Contact with and (suspected) exposure to other viral communicable diseases
CPT/HCPCS: 87635

== ENCOUNTER 2020-09-25 07:37 | Day surgery (SDC) | payer MEDICARE ==
[2020-09-25] VITALS (10 sets, daily range): BP systolic 156–188; BP diastolic 70–83
[~2020-09-25] VITALS: Ht 152 cm; Wt 72.7 kg
[2020-09-25] MEDS ORDERED: ceFAZolin INJECTION 1,000 MG in WATER (STERILE) FOR INJECTION 10 ML IV ONE (07:45)
[2020-09-25] MEDS ORDERED: LACTATED RINGERS 1,000 ML IV PRN (07:45)
[2020-09-25] MEDS ORDERED: CATHETER FLUSH 10 ML SYR IV PRN (08:00)
--- NOTE | 2020-09-25 08:04 | Progress Note-Pre Operative ---
Pre-Operative Progress Note H&P Reviewed The H&P was reviewed, patient examined and no changes noted. Date Seen by Provider: Sep 25, 2020 Time Seen by Provider: 08:03 Date H&P Reviewed: Sep 25, 2020 Time H&P Reviewed: 08:03 Pre-Operative Diagnosis: right breast intraductal papilloma, ruq abd mass DAXA MUSTAFA DO Sep 25, 2020 08:04
[2020-09-25] MEDS ORDERED: LIDOCAINE 1% INJ 20 ML 20 ML VIAL INJ ONE (08:15)
[2020-09-25] MEDS ORDERED: proPOfol 200 MG/20 ML (DIPRIVAN) VIAL IV ONE (08:27)
[2020-09-25] MEDS ORDERED: fentaNYL INJECTION 100 MCG/2 ML AMP ONE (08:27)
[2020-09-25] MEDS ORDERED: SEVOFLURANE (ULTANE) 15 ML INHAL SOLN ONE ×3 (08:31→12:28)
[2020-09-25] MEDS ORDERED: LIDOCAINE PF 2% 5 ML (XYLOCAINE) VIAL ONE (08:31)
[2020-09-25] MEDS ORDERED: ONDANSETRON 4 MG/2 ML (SDV) Z0FRAN ONE ×2 (08:31→13:23)
--- NOTE | 2020-09-25 09:41 | Diagnostic Imaging Report ---
INDICATION: Right breast mass. Patient presents for ultrasound-guided hookwire localization. Patient brought to the sonographic suite and placed on table in the supine position. Ultrasound imaging of the right breast was performed to evaluate appropriate entry site. Right breast was then prepped and draped in usual sterile fashion. Small amount of 1% lidocaine was utilized for local anesthesia. A localizer needle was advanced into the right breast retroareolar region and placed adjacent to the nodule as well as calcification and a marker clip. The hookwire was deployed and needle was removed. Hookwire was affixed to the patient's skin. Patient tolerated the procedure well and was sent for post procedure mammogram in satisfactory condition. IMPRESSION: Successful hook wire deployment adjacent to the nodule in the retroareolar 11 o'clock location of the right breast. Dictated by: Dictated on workstation # [id number]
[2020-09-25] MEDS ORDERED: ceFAZolin INJECTION 1,000 MG ONE (09:55)
[2020-09-25] MEDS ORDERED: WATER (STERILE) FOR INJECTION 10 ML ONE (09:56)
[2020-09-25] MEDS ORDERED: LIDOCAINE/EPI 1%-1:100,000 (XYLOCAINE) 20ML ONE (10:04)
[2020-09-25] MEDS ORDERED: GLYCOPYRROLATE 0.2 MG/ML (ROBINUL) 2 ML VIAL ONE (11:38)
[2020-09-25] MEDS ORDERED: HYDR-4226 PO (12:35)
--- NOTE | 2020-09-25 12:35 | Progress Note-Post Operative ---
Post-Operative Progess Note Surgeon (s)/Clinical Sociologist (s) Surgeon DAXA MUSTAFA DO Clinical Sociologist: na Pre-Operative Diagnosis right breast intraductal papilloma, ruq abd mass Post-Operative Diagnosis same Procedure & Operative Findings Date of Procedure 09/25/20 Procedure Performed/Findings right wire localized excisional breast biopsy excision right upper quadrant abdominal cyst 2.6x2.4 cm Anesthesia Type general Estimated Blood Loss Estimated blood loss (mL): minimal Specimens/Packing Specimens Removed right breast mass cyst ruq abdomen DAXA MUSTAFA DO Sep 25, 2020 12:34
--- NOTE | 2020-09-25 12:37 | Discharge Inst-Simple/Standard ---
Discharge Inst-Standard Discharge Medications New, Converted or Re-Newed RX: RX on Chart Patient Instructions/Follow Up Plan of Care/Instructions/FU: 2 weeks Patria Activity as Tolerated: No Discharge Diet: Regular Diet Other Inst to Patient Follow up Appt: Make appointment for 2 week. Instructions: No lifting greater than 10 pounds. No strenuous activity. May shower in 24 hours, no tub bath or soaking. Use incentive spirometer at home as directed. No Smoking Skin/Wound Care: You have special glue over your incision that will fall off on it's own. Symptoms to Report: Appetite Changes, Extremity Discoloration, Numbness/Tingling, Swelling Increased, Bleeding Excessive, Eyesight Changes, Pain Increased, Urine Color Change, Constipation(Persistent), Fever over 101 degree F, Pain/Pressure in chest, Urinating Difficulty, Cough Up/Vomit Blood, Heart Beat Irreg/Pounding, Pain/Pressure in jaw, Vaginal Bleeding Increase, Cramps in feet or legs, Lightheadedness, Pain/Pressure in shoulder, Diarrhea(Persistent), Memory Changes Suddenly, Questions/Concerns, Weight gain consecutive days, Dizziness/Fainting, Nausea/Vomiting, Shortness of Breath, Weight gain over 2 pounds If questions or concerns contact your physician Or seek help at emergency department. DAXA MUSTAFA DO Sep 25, 2020 12:37
--- NOTE | 2020-09-25 13:29 | Anesthesia-General Post-Op ---
General Patient Condition Mental Status/LOC: Same as Preop Cardiovascular: Satisfactory Nausea/Vomiting: Absent Respiratory: Satisfactory Pain: Controlled Complications: Absent Post Op Complications Complications None Follow Up Care/Instructions Patient Instructions None needed. Anesthesia/Patient Condition Patient Condition Patient is doing well, no complaints, stable vital signs, no apparent adverse anesthesia problems. No complications reported per nursing. KINGSTON HINTON CRNA Sep 25, 2020 13:29
[2020-09-25] MEDS ORDERED: morphine INJ 10 MG/ML 1ML (SYR OR VIAL) IVP ONE (13:30)
[2020-09-25] MEDS ORDERED: ONDANSETRON 4 MG/2 ML (SDV) Z0FRAN IVP PRN (13:30)
--- NOTE | 2020-09-25 13:51 | Diagnostic Imaging Report ---
INDICATION: Status post right breast excisional biopsy. Specimen radiograph was submitted. Specimen radiograph from the right breast demonstrates the marker clip as well as the hookwire in place. There are several calcified locations within the sample at coordinates G6. IMPRESSION: Hookwire and marker clip are located within the sample. Dictated by: Dictated on workstation # [id number]
[2020-09-25] MEDS ORDERED: HYDROcodone/APAP 5 MG/325 MG (LORTAB) TAB ONE (14:29)
[2020-09-25] MEDS ORDERED: HYDROcodone/APAP 5 MG/325 MG (LORTAB) TAB PO ONE (14:30)
--- NOTE | 2020-09-25 15:53 | Diagnostic Imaging Report ---
INDICATION: Right breast nodule. Patient is status post ultrasound-guided hookwire placement. Unilateral right 2-D CC and ML mammography was performed after patient underwent ultrasound-guided hookwire localization. Images demonstrate a hookwire within the retroareolar location of the right breast. Hookwire is adjacent to the marker clip from previous biopsy. IMPRESSION: Satisfactory hookwire placement, as described. Dictated by: Dictated on workstation # [id number]
--- NOTE | 2020-09-27 00:56 | OPERATIVE REPORT ---
DATE OF SERVICE: 09/25/2020 PREOPERATIVE DIAGNOSIS: Right breast intraductal papilloma and right upper quadrant abdominal mass. PROCEDURE: Right wire localized excisional breast mass and right upper quadrant excision of cyst 2.6 x 2.4 cm. SURGEON: Mathew España DO ANESTHESIA: General. ESTIMATED BLOOD LOSS: Minimal. COMPLICATIONS: None. INDICATIONS: The patient is a 75-year-old female with double discharge and had biopsy of the right breast lesion found on imaging. Biopsy demonstrated intraductal papilloma. The patient also with a mass in the right upper quadrant. The patient wishes to have both areas excised. She understands risks and benefits of procedures and wished to proceed with procedures. Consent was signed in the chart. DESCRIPTION OF PROCEDURE: The patient was taken to the operating suite. She was prepped and draped in sterile fashion. Timeout was performed, patient had wire localization of the right breast mass. Local anesthetic was infiltrated around the right areola. A 15-blade scalpel was used to make a skin incision and dissect down the subcutaneous tissues. The wire was then brought out through the incision. A cautery was then used to dissect circumferentially around the wire, removing the wire and breast mass in its entirety. The mass was tagged with one long suture lateral, two short sutures superiorly and two long sutures deep. The wire was sent for radiology, which x-ray demonstrated the wire and clip were removed with specimen obtained. The right breast was irrigated with copious amounts of irrigation. The subcutaneous tissues were reapproximated using 3-0 Vicryl and skin was then closed using 4-0 Monocryl and the skin was then washed and dried and Skin Affix was placed over the incision. The right upper quadrant mass was then had local anesthetic infiltrated. Elliptical incision was made around the area and the skin and subcutaneous tissues were then removed with the overall dimensions being 2.6 x 2.4 cm. Hemostasis was achieved. Subcutaneous tissue was closed with 3-0 Vicryl and skin was then closed using 4-0 Monocryl in a running subcuticular fashion. The area was then washed and dried and Skin Affix was placed over the incision. The patient tolerated procedure well without any complications. She was taken to recovery room in stable condition. Job ID: [id number] DocumentID: [id number] Dictated Date: 09/26/2020 20:18:43 Network Director Date: 09/27/2020 00:55:52 Dictated By: DO LUZ MARINA COOK
== END 2020-09-25 14:50 ==
LOC: SDC 07:37
PROVIDERS: ATTEND Surgery
DX: N60.21 Fibroadenosis of right breast (principal); N62 Hypertrophy of breast; D24.1 Benign neoplasm of right breast; L72.0 Epidermal cyst; I10 Essential (primary) hypertension; G47.33 Obstructive sleep apnea (adult) (pediatric); K21.9 Gastro-esophageal reflux disease without esophagitis; G62.9 Polyneuropathy, unspecified; M19.90 Unspecified osteoarthritis, unspecified site; E03.9 Hypothyroidism, unspecified; E66.9 Obesity, unspecified; Z68.31 Body mass index [BMI] 31.0-31.9, adult; Z79.899 Other long term (current) drug therapy; Z80.0 Family history of malignant neoplasm of digestive organs
CPT/HCPCS: 11403; 19120; 19285; 76098; 77065; 87081; 88304; 88307; G0279

== ENCOUNTER → 2021-04-06 | Outpatient (CLI) | payer MEDICARE ==
[~2021-04-06] MED LIST changes: +CALC600T91 PO; -CLC600T PO; +HYDR-4226 PO
--- NOTE | 2021-04-06 11:31 | Diagnostic Imaging Report ---
INDICATION: Routine screening. Comparison is made with prior mammogram of 04/04/2020 and 02/26/2019. Both breasts are heterogeneously dense, limiting the sensitivity of mammography. There are postsurgical changes in the retroareolar right breast. Patient has undergone previous needle localization procedure with excisional biopsy. There is a fibronodular parenchymal pattern which appears be fairly stable. There are benign calcifications scattered throughout both breasts. No spiculated mass or malignant appearing microcalcifications are seen. Axillae are unremarkable. IMPRESSION: BI-RADS Category 2 No mammographic features suspicious for malignancy are identified. ACR BI-RADS Category 2: Benign findings. Result letter will be mailed to the patient. Note: At least 10% of breast cancer is not imaged by mammography. Dictated by: Dictated on workstation # [id number]
== END ==
LOC: RAD 09:59
PROVIDERS: ATTEND Obstetrics & Gynecology
DX: Z12.31 Encounter for screening mammogram for malignant neoplasm of breast (principal)
CPT/HCPCS: 77063; 77067

== ENCOUNTER → 2021-05-05 | Outpatient (CLI) | payer MEDICARE ==
[~2021-05-05] MED LIST changes: +DOXY-311 PO; -DOXY100C42 PO
--- NOTE | 2021-05-05 12:55 | Diagnostic Imaging Report ---
INDICATION: Right leg pain COMPARISON: None. FINDINGS: 3 views of the right knee knee joint demonstrate no acute fracture or dislocation. No focal osseous lesions are seen. No significant joint effusion is seen. The surrounding soft tissue structures are unremarkable. There are no radiopaque foreign bodies. IMPRESSION: 1. No acute fractures or dislocations of the right knee knee joint. Dictated by: Dictated on workstation # [id number]
--- NOTE | 2021-05-05 12:56 | Diagnostic Imaging Report ---
INDICATION: Right hip pain. COMPARISON: None. FINDINGS: AP view of the pelvis and 2 dedicated radiographic views of the right hip were obtained. There is no fracture, dislocation, bone destruction, or radiopaque foreign body. The visualized pelvic osseous structures and the SI joints demonstrate no acute fracture or dislocation. There is no bone destruction or radiopaque foreign body. The surrounding soft tissue structures are unremarkable. IMPRESSION: 1. No acute fracture or dislocation in the pelvis or right hip. Dictated by: Dictated on workstation # [id number]
== END ==
LOC: RAD 11:23
PROVIDERS: ATTEND Internal Medicine
DX: M79.604 Pain in right leg (principal); M25.551 Pain in right hip
CPT/HCPCS: 73562

== ENCOUNTER → 2022-04-08 | Outpatient (CLI) | payer MEDICARE ==
--- NOTE | 2022-04-08 15:28 | Diagnostic Imaging Report ---
INDICATION: Routine screening. COMPARISON is made with prior mammograms from 04/06/2021 and 04/04/2020. 2-D and 3-D bilateral screening mammography was performed with CAD. Both breasts are heterogeneously dense, limiting the sensitivity of mammography. Fibronodular parenchymal pattern is again noted. Scattered benign calcifications are again noted throughout both breasts. No dominant mass or malignant-appearing microcalcifications are identified. Axillae are unremarkable. IMPRESSION: BI-RADS Category 2 No mammographic features suspicious for malignancy are identified. ACR BI-RADS Category 2: Benign findings. Result letter will be mailed to the patient. Note: At least 10% of breast cancer is not imaged by mammography. Dictated by: Dictated on workstation # [id number]
== END ==
LOC: RAD 08:00
PROVIDERS: ATTEND Internal Medicine
DX: Z12.31 Encounter for screening mammogram for malignant neoplasm of breast (principal)
CPT/HCPCS: 77063; 77067

== ENCOUNTER 2022-07-14 18:49 | Emergency (ER) | payer MEDICARE ==
[~2022-07-14] VITALS: Ht 152 cm; Wt 72.5 kg
[2022-07-14] MEDS ORDERED: ACETAMINOPHEN 325 MG TABLET PO STA (19:41)
[2022-07-14] MEDS ORDERED: hydrALAZINE (APESOLINE) 20 MG/ML VIAL IV STA (19:42)
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
[2022-07-14 19:55] LABS: BASOPHILS # (AUTO) 0.1 10^3/uL (0.0-0.1); BASOPHILS % (AUTO) 1 % (0-10); EOSINOPHILS # (AUTO) 0.3 10^3/uL (0.0-0.3); EOSINOPHILS % (AUTO) 3 % (0-10); HEMATOCRIT 41 % (35-52); LYMPHOCYTES # (AUTO) 3.2 10^3/uL (1.0-4.0); LYMPHOCYTES % (AUTO) 33 % (12-44); MEAN CORPUSCULAR HEMOGLOBIN 31 pg (25-34); MEAN CORPUSCULAR HGB CONC 34 g/dL (32-36); MEAN CORPUSCULAR VOLUME 92 fL (80-99); MEAN PLATELET VOLUME 10.6 fL (9.0-12.2); MONOCYTES # (AUTO) 0.8 10^3/uL (0.0-1.0); MONOCYTES % (AUTO) 9 % (0-12); NEUTROPHILS # (AUTO) 5.3 10^3/uL (1.8-7.8); NEUTROPHILS % (AUTO) 55 % (42-75); PLATELET COUNT 202 10^3/uL (130-400); WHITE BLOOD COUNT 9.7 10^3/uL (4.3-11.0)
--- NOTE | 2022-07-14 20:03 | Diagnostic Imaging Report ---
EXAMINATION: Chest radiograph, portable AP view. DATE: 07/14/2022 7:55 PM. INDICATION: 76-year-old female, hypertension. Chest pain. COMPARISON: None. FINDINGS: Heart size and mediastinal contours are unremarkable. There is no identified pneumothorax. There is no large pleural effusion. There is no identified focal airspace consolidation. There are surgical clips at the level of the neck. IMPRESSION: No identified acute cardiopulmonary abnormality. Dictated by: Dictated on workstation # [id number]
[2022-07-14 20:13] LABS: ALBUMIN 3.9 GM/DL (3.2-4.5); POTASSIUM 3.4 MMOL/L (3.6-5.0); PROTHROMBIN TIME PATIENT 13.2 SEC (12.2-14.7)
[2022-07-14 20:14] LABS: CALCIUM 9.4 MG/DL (8.5-10.1)
[2022-07-14 20:16] LABS: TOTAL PROTEIN 6.8 GM/DL (6.4-8.2)
[2022-07-14 20:17] LABS: BILIRUBIN,TOTAL 0.5 MG/DL (0.1-1.0)
[2022-07-14 20:19] LABS: CREATININE SERUM 0.73 MG/DL (0.60-1.30)
[2022-07-14 20:22] LABS: MAGNESIUM 1.9 MG/DL (1.6-2.4)
[2022-07-14] MEDS ORDERED: KCL 10 MEQ TAB (MICRO K) PO STA (20:34)
[2022-07-14] MEDS ORDERED: HYDR-3923 PO (20:55)
[2022-07-14 21:00] VITALS: BP 174/74
== END 2022-07-14 21:02 | disposition home or self-care (01) ==
LOC: EDUNIT# 18:49 → ER 18:50
DX: I10 Essential (primary) hypertension (principal); Z79.899 Other long term (current) drug therapy
CPT/HCPCS: 36415; 71045; 80053; 83735; 83874; 83880; 84484; 85025; 85610; 85730; 93005; 93041

== ENCOUNTER 2022-11-23 05:33 | Outpatient (CLI) | payer MEDICARE ==
[~2022-11-23] VITALS: Ht 152.4 cm; Wt 77.1 kg
[~2022-11-23 05:33] MED LIST changes: -DOXY-311 PO; +DOXY-444 PO; +HYDR-3923 PO
[2022-11-24] MEDS ORDERED: AMLO-251 PO (15:05)
== END 2022-11-24 15:15 | disposition home or self-care (01) ==
LOC: PREOP 05:33
PROVIDERS: ATTEND Surgery
DX: Z01.818 Encounter for other preprocedural examination (principal)

== ENCOUNTER 2022-11-30 07:57 | Day surgery (SDC) | payer MEDICARE ==
[~2022-11-30] VITALS: Ht 152.4 cm; Wt 77.1 kg
[2022-11-30 07:30] VITALS: BP 156/82
[~2022-11-30 07:57] MED LIST changes: +AMLO-251 PO
[2022-11-30] MEDS ORDERED: LACTATED RINGERS 1,000 ML IV STA (07:58)
[2022-11-30] MEDS ORDERED: HURRICAINE EXT TUBE (BENZOCAINE) XX PRN (08:00)
[2022-11-30] MEDS ORDERED: PROPOFOL INJECTION 50 ML IV ONE (08:48)
[2022-11-30] MEDS ORDERED: MIDAZOLAM 2 MG/2 ML (VERSED) VIAL ONE (08:48)
--- NOTE | 2022-11-30 09:22 | Discharge Inst-Simple/Standard ---
Discharge Inst-Standard Patient Instructions/Follow Up Plan of Care/Instructions/FU: Patria - 2 weeks Activity as Tolerated: Yes Discharge Diet: Regular Diet DAXA MUSTAFA DO Nov 30, 2022 09:22
[2022-11-30 09:26] VITALS: BP 113/62
[2022-11-30 09:31] VITALS: BP 122/57
[2022-11-30 09:35] VITALS: BP 122/57
[2022-11-30 09:48] VITALS: BP 140/74
--- NOTE | 2022-11-30 10:55 | Anesthesia-General Post-Op ---
MAC Patient Condition Mental Status/LOC: Same as Preop Cardiovascular: Satisfactory Nausea/Vomiting: Absent Respiratory: Satisfactory Pain: Controlled Complications: Absent Post Op Complications Complications None Follow Up Care/Instructions Patient Instructions None needed. Anesthesiology Discharge Order Discharge Order Patient is doing well, no complaints, stable vital signs, no apparent adverse anesthesia problems. No complications reported per nursing. HARRY WILLARD CRNA Nov 30, 2022 10:55
--- NOTE | 2022-11-30 17:53 | OPERATIVE REPORT ---
DATE OF SERVICE: 11/30/2022 PREOPERATIVE DIAGNOSES: GERD, history of polyps, screening colonoscopy. POSTOPERATIVE DIAGNOSES: Colon polyps, small hiatal hernia, diverticulosis. PROCEDURE: EGD with biopsies, colonoscopy with hot biopsy polypectomy x4. SURGEON: Daxa España DO. 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 ESTIMATED BLOOD LOSS: None. COMPLICATIONS: None. INDICATIONS: The patient is a 77-year-old female needing EGD and colonoscopy. She understands risks and benefits of procedure and wishes to proceed. Consent was signed in chart. DESCRIPTION OF PROCEDURE: The patient was taken to endoscopy suite, placed in left lateral recumbent position. Timeout was performed. Scope was inserted in the mouth, down the esophagus, stomach and the duodenum without difficulty. No polyps, masses, ulcerations in the duodenum. Scope was retracted. Stomach was further insufflated. No polyps, masses or ulcerations. Biopsy of the antrum was obtained. Scope was retroflexed noting a small hiatal hernia. No other pathology. Scope returned to its normal position, slowly withdrawn to the distal esophagus, biopsy of the GE junction was obtained. No polyps, masses or ulcerations. Scope was slowly retracted back until completely removed. Digital rectal exam was performed. No palpable polyps, masses or ulcerations. Scope was inserted in the rectum and advanced all the way to the cecum with minimal difficulty. Prep was adequate. Scope was slowly retracted back. No polyps, masses or ulcerations in the cecum. In the ascending colon, a small submucosal lipoma present. No polyps, masses, ulcerations. In the transverse colon, a small polyp was present, which hot biopsy polypectomy was performed. No other polyps, masses or ulcerations. Scope was retracted back to the descending colon. Three polyps were present, which hot biopsy polypectomy was performed. Scope was then continuously retracted back through the sigmoid into the rectum with noting no other pathology. Scope was returned to normal position. Slowly withdrawn. Noticed diverticulosis throughout the majority of the left colon. The patient tolerated the procedure well without complications, taken to recovery room in stable condition. RECOMMENDATIONS: The patient will need repeat colonoscopy on an needed basis due to her age. PLAN: She will follow up on biopsies. We will continue on current medications. High fiber diet due to diverticulosis. Job ID: [id number] DocumentID: [id number] Dictated Date: 11/30/2022 09:43:24 Retail Account Executive Date: 11/30/2022 17:51:00 Dictated By: DAXA ESPAÑA DO
== END 2022-11-30 09:58 | disposition home or self-care (01) ==
LOC: ENDO 07:57
PROVIDERS: ATTEND Surgery
DX: Z12.11 Encounter for screening for malignant neoplasm of colon (principal); D12.4 Benign neoplasm of descending colon; K63.5 Polyp of colon; K44.9 Diaphragmatic hernia without obstruction or gangrene; K57.30 Diverticulosis of large intestine without perforation or abscess without bleeding; K29.70 Gastritis, unspecified, without bleeding; K21.00 Gastro-esophageal reflux disease with esophagitis, without bleeding; G47.33 Obstructive sleep apnea (adult) (pediatric); Z80.0 Family history of malignant neoplasm of digestive organs; Z79.899 Other long term (current) drug therapy; E66.9 Obesity, unspecified; Z68.33 Body mass index [BMI] 33.0-33.9, adult
CPT/HCPCS: 88305

== ENCOUNTER → 2023-04-18 | Outpatient (CLI) | payer MEDICARE ==
--- NOTE | 2023-04-18 11:48 | Diagnostic Imaging Report ---
INDICATION: Routine screening. Comparison is made with prior mammogram from 04/08/2022 and 04/06/2021. 2-D and 3-D bilateral screening mammography was performed with CAD. CAD is utilized. The current study was also evaluated with a Computer Aided Detection (CAD) system. Both breasts are heterogeneously dense, limiting the sensitivity of mammography. Fibronodular parenchymal pattern is stable. No new mass is identified. There are benign calcifications scattered throughout both breasts. No malignant-appearing microcalcifications are seen. Axillae are unremarkable. IMPRESSION: BI-RADS Category 2 No mammographic features suspicious for malignancy are identified. ACR BI-RADS Category 2: Benign findings. Result letter will be mailed to the patient. Note: At least 10% of breast cancer is not imaged by mammography. Dictated by: Dictated on workstation # [id number]
== END ==
LOC: RAD 08:40
PROVIDERS: ATTEND Internal Medicine
DX: Z12.31 Encounter for screening mammogram for malignant neoplasm of breast (principal)
CPT/HCPCS: 77063; 77067